=== PATIENT | female | born 1965 | race Caucasian/White ===

== ENCOUNTER 2023-07-26 13:34 | Outpatient (CLI) | payer BC ==
[2023-07-26 14:21] LABS: #Basophils 0.1 10x3/uL (0.0-0.2); #Eosinphils 0.2 10x3/uL (0.0-0.5); #Monocytes 0.5 10x3/uL (0.0-1.1); #Neutrophils 3.5 10x3/uL (1.5-8.4); %Basophils 0.8 % (0.0-2.0); %Eosinophils 3.6 % (0.0-6.0); %Lymphocytes 33.7 % (18.0-47.0); %Monocytes 7.9 % (0.0-10.0); %Neutrophils 53.7 % (40.0-75.0); Hematocrit 39.5 % (34.9-44.5); Hemoglobin 13.1 g/dL (12.0-15.5); Mean Corpuscular HGB CONC 33.2 g/dL (32.0-36.0); Mean Corpuscular Hemoglobin 28.4 pg (27.0-33.0); Mean Corpuscular Volume 85.7 fl (81.6-98.3); Mean Platelet Volume 11.3 fl (7.4-10.4); Platelet Count 236 10x3/uL (150-450); RBC Distribution Width 14.3 % (11.5-14.5); Red Blood Cell (RBC) Count 4.61 10x6/uL (3.90-5.03); White Blood Cell (WBC) Count 6.6 10x3/uL (3.5-10.5)
[2023-07-26 14:31] LABS: ALT (SGPT) 31 U/L (8-55); AST (SGOT) 28 U/L (5-34); Alkaline Phosphatase 109 U/L (40-110); Anion Gap 12 mmol/L (10-20); BUN (Urea Nitrogen) 13 mg/dL (9.8-20.1); Bilirubin, Direct 0.1 mg/dL (0.1-0.3); Bilirubin, Total 0.5 mg/dL (0.2-1.2); Calc. Creatinine Clearance 0 mL/min (70-130); Calcium 9.6 mg/dL (7.8-10.44); Carbon Dioxide 25 mmol/L (22-29); Chloride 110 mmol/L (98-107); Estimated GFR 61; Glucose 110 mg/dL (70-105); Potassium 4.1 mmol/L (3.5-5.1); Protein, Total 6.7 g/dL (6.0-8.3); Sodium 143 mmol/L (136-145)
== END 2023-07-26 13:35 | disposition home or self-care (01) ==
LOC: EDSEX → LABBT 13:34
PROVIDERS: ATTEND Surgery
DX: Z01.812 Encounter for preprocedural laboratory examination (principal); K81.9 Cholecystitis, unspecified
CPT/HCPCS: 80048; 80076; 85025

== ENCOUNTER 2023-07-29 11:42 | Day surgery (SDC) | payer BC ==
[2023-07-26 14:02] VITALS: BMI 41.2
[2023-07-29] MEDS ORDERED: Indocyanine Green 25 MG/10 ML VIAL ONE (13:16)
[2023-07-29] MEDS ORDERED: EPINEPHrine 1 MG/ML VIAL ONE (13:16)
[2023-07-29] MEDS ORDERED: Bupivacaine 0.25% HCL 30 ML VIAL ONE (13:16)
[2023-07-29] MEDS ORDERED: Scopolamine 1 mg/72 hour Patch ONE (13:37)
[2023-07-29] MEDS ORDERED: Acetaminophen 500 MG TAB ONE (13:37)
[2023-07-29] MEDS ORDERED: Sodium Chloride 0.9% 100 ML ONE (14:21)
[2023-07-29] MEDS ORDERED: CEFAZOLIN 2 GM VIAL ONE (14:21)
[2023-07-29] MEDS ORDERED: fentaNYL PF 100 MCG/2 ML SYRINGE ONE (14:27)
[2023-07-29] MEDS ORDERED: Lidocaine 1% PF 5 ML VIAL ONE (14:27)
[2023-07-29] MEDS ORDERED: Rocuronium Bromide 10 MG/ML (10ML VIAL) ONE (14:27)
[2023-07-29] MEDS ORDERED: Ondansetron PF 4 MG/2 ML Vial ONE (14:27)
[2023-07-29] MEDS ORDERED: Dexamethasone 20 MG/5 ML VIAL ONE (14:27)
[2023-07-29] MEDS ORDERED: PROPOFOL 20 ML ONE (14:27)
[2023-07-29] MEDS ORDERED: Metoclopramide HCl 10 MG (2 mL) VIAL ONE (14:55)
[2023-07-29] MEDS ORDERED: SUGAMMADEX SODIUM 200 MG/2 ML VIAL ONE (14:56)
[2023-07-29] MEDS ORDERED: Glycopyrrolate 0.2 MG/ML 5 ML SYRINGE ONE (15:06)
[2023-07-29] MEDS ORDERED: fentaNYL 50 mcg/mL 1 mL Vial ONE ×5 (15:53→16:38)
[2023-07-29] MEDS ORDERED: Ondansetron ODT 4 MG TAB ONE (17:18)
[2023-07-29] MEDS ORDERED: HYDROcodone/Acetaminophen 5/325 mg Tablet ONE (17:46)
== END 2023-07-29 18:20 | disposition home or self-care (01) ==
LOC: SDC 11:42
PROVIDERS: ATTEND Surgery
PROC: 0FT44ZZ Resection of Gallbladder, Percutaneous Endoscopic Approach (ICD-10-PCS; principal; 2023-07-29)
DX: K81.9 Cholecystitis, unspecified (principal); Z79.899 Other long term (current) drug therapy
CPT/HCPCS: 88304; C1889; J0171; J0665; J1100; J2405; J2704; J2765; J3010; J3490; Q0162